=== PATIENT | female | born 1955 | race Caucasian/White ===

== ENCOUNTER 2017-07-01 20:56 | Inpatient (IN) | payer OTHER ==
[~2017-07-01] VITALS: Ht 172.7 cm; Wt 82.6 kg
--- NOTE | ~2017-07-01 | HC ---
[facility] [place] [address] CONSULTATION Name: BETO LLANES Room #: 207-[facility] IN M.R.#: [id number] Admission: 07/01/17 Attend Phys: Zaida Mulligan Discharge: 07/04/17 Date of : 57 Report #: [id number] THIS REPORT FOR: //name// CC: Akira Mulligan DATE OF SERVICE: 07/02/2017 HISTORY OF PRESENT ILLNESS: This is a 61-year-old white female originally seen at an outside hospital and then transferred to [facility] for evaluation regarding chest pain. She was diagnosed with a non-ST elevation RI, was noted to have acute renal failure, likely acute tubular necrosis. She underwent cardiac catheterization, which showed nonobstructive coronary artery disease. She has cardiomyopathy consistent with Takotsubo. She also has hypertension. We are seeing her in rehabilitation medicine consultation. PAST MEDICAL HISTORY: Includes a prior RI, history of hypertension, anxiety. HABITS: Tobacco abuse. Current every day smoker. There is a history of some alcohol use as well. ALLERGIES: PENICILLIN. MEDICATIONS: Please see the full medication listing. SOCIAL HISTORY: Lives in a house. There are some steps going in. As I tried to ask her further, she noted she was having considerable nausea. Did not desire to continue with the history, so I only obtained a very limited social history. She has nausea and I did not take her through the full review of systems. PHYSICAL EXAMINATION: GENERAL: She is a pleasant 61-year-old white female, but complains of nausea and likes to keep her eyes closed. HEENT: Facies appeared symmetric. EXTREMITIES: She has functional range of motion of both upper extremities. Strength is grade 4-/5. DTRs are trace to 1. Lower extremities, no focal calf swelling, functional range of motion with strength grade 4-/5. DTRs are trace to 1. ASSESSMENT: A 61-year-old white female with the following problem list: 1. Medical complexity with generalized debilitation. 2. Cardiomyopathy consistent with Takotsubo 3. Non-ST elevation myocardial infarction. 4. Acute renal failure, likely acute tubular necrosis. [facility] [address] [place] [address] CONSULTATION Name: BETO LLANES Room #: 207-P [facility] IN M.R.#: [id number] Admission: 07/01/17 Attend Phys: Zaida Mulligan Discharge: 07/04/17 Date of : 57 Report #: [id number] 5. Current complaints of nausea with limited history obtained. 6. Tobacco abuse. 7. Hypertension. PLAN: Therapies are to evaluate her including physical therapy and occupational therapy. Hopefully, as her nausea, decrease and should be able to increase her overall functional activity level and be further evaluated in her functional abilities. She may warrant a short acute in-hospital inpatient rehabilitation stay as she further medically stabilizes. At this point, we will follow along with you and see how she does. Thank you for asking us to assist in this patient's care. <ELECTRONICALLY SIGNED> By: Akira Fung MD 07/05/17 1409 1514 2125 Akira Fung MD /[facility]
--- NOTE | ~2017-07-01 | CATHLAB ---
[facility] [address] [place] [address] INVASIVE PROCEDURE REPORT Name: BETO LLANES Room #: 207-P ADM IN M.R.#: [id number] Admission: 07/01/17 Attend Phys: Zaida Nichole Discharge: Date of : 57 Date of Service: 07/02/17 1757 Report #: [id number] THIS REPORT FOR: //name// APPROVED REPORT Study performed: 07/02/2017 10:50:20 Patient Details Patient Status: In-Patient Room #: The patient is a 61 year-old female Event Personnel Castillo Rajan Patient Service Representative, Robin Burns RN, Akira Bryan, My [place] [employer] Procedures Performed Left Heart Cath w/or w/o Coronaries [id number] [facility] Indication Cardiomyopathy, Chest pain Risk Factors Hypercholesterolemia, Coronary Artery DiseaseHypertension Procedure Narrative The Right Groin^ was infiltrated with 1% Lidocaine subcutaneous anesthesia. A PINNACLE 5FR Sheath #[id number] sheath was inserted into the . Coronary angiography was performed using coronary diagnostic catheters. The right coronary system was accessed and visualized with a JR4 catheter. The left coronary system was accessed and visualized with a 5FR JL5 #[id number] catheter. The left ventricle was accessed and visualized with a PIGTAIL catheter. Left ventricular/Aortic Valve gradient assessed via catheter pullback. Left ventriculogram was performed in 30 degree projection. Closure device was deployed with a 5 Fr MYNXGRIP 5F #[id number]. The patient tolerated the procedure well and there were no complications associated with the procedure. There was no hematoma. Intraoperative Conscious Sedation Sedation start time: 12.43 Case end Time: 12.59 Fentanyl 50 mcg Versed 1.5 mg Fluoro Time: 2.12 minutes [facility] [address] [place] [address] INVASIVE PROCEDURE REPORT Name: BETO LLANES Room #: 207-P [facility] IN M.R.#: [id number] Admission: 07/01/17 Attend Phys: Zaida Nichole Discharge: Date of : 57 Date of Service: 07/02/17 1757 Report #: [id number] Dose: 369 mGy Contrast Type and Amount: Visipaque 140 ml Coronary Angiography The patient's coronary anatomy is right dominant. Diagnostic Cath Left Main Large-caliber vessel with mild disease distally. LAD There are moderate lesions in the proximal and mid segments of the LAD, 40-50%. Recommend medical therapy. Diagonal 1 Moderate size caliber vessel, with no flow-limiting lesions. Circumflex Supplies 2 OM vessels. OM1 Small-caliber vessel, with mild disease proximally. OM2 Moderate size caliber vessel, with no flow-limiting lesions. Right Coronary Dominant vessel with mild disease in the proximal segment, 30%. R PDA Patent vessel, no flow-limiting lesions. RPLV Small-caliber vessel, with no flow-limiting lesions. Left Ventriculography The left ventricle is normal in size with decreased contractility. The left ventricular ejection fraction is estimated to be 40%. There is hypokinesis of the mid anterior and anterolateral hylton. Hemodynamics The aortic pressure is 135/86 mmHg with a mean of 68 mmHg. The left ventricular pressure is 125/15 mmHg with a mean of mmHg. The left ventricular end diastolic pressure is 26 mmHg. There was no gradient across the aortic valve upon pullback. Pullback from the left ventricle to the aorta revealed no gradient across the aortic valve. Conclusion 1. Mild to moderate disease in the LAD and RCA. Recommend medical therapy. 2. Moderate segmental LV dysfunction. 3. Recommend aggressive risk factor management. <ELECTRONICALLY SIGNED> By: Castillo Rajan MD 07/02/171756 56 56 Castillo Rajan MD /INF
--- NOTE | ~2017-07-01 | EKG ---
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1955 Requested By: Raina Peres Order Number: [id number] MD: Matt Cook Measurements Intervals [place] Rate: 96 P: 71 OK: 182 QRS: 50 QRSD: 97 T: 45 QT: 380 QTc: 481 Interpretive Statements Sinus rhythm Probable anteroseptal infarct, old Nonspecific ST segment abnormality Compared to ECG 11/10/2015 17:18:22 No significant change was found Electronically Signed On 07-02-2017 9:55:07 CDT by Matt Cook [email or web address] <ELECTRONICALLY SIGNED> By: Matt Cook MD, [facility] 07/02/17 0955 6 6 Matt Cook MD, [facility] /EPI
--- NOTE | ~2017-07-01 | EKG ---
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 : [id number] Requested By: Raina Peres Order Number: [id number] MD: Matt Cook Measurements Intervals [place] Rate: 98 P: 78 NM: 183 QRS: 46 QRSD: 106 T: 22 QT: 393 QTc: 502 Interpretive Statements Sinus rhythm Probable anteroseptal infarct, old Nonspecific ST and T wave abnormality No previous ECGs available for comparison Electronically Signed On 07-02-2017 9:50:59 CDT by Matt Cook [email or web address] <ELECTRONICALLY SIGNED> By: Matt Cook MD, [facility] 07/02/17 0950 28 28 Matt Cook MD, [facility] /EPI
[~2017-07-01 20:56] MED LIST: ALDACTONE50 MG PO; ASPIR 8181 MG PO; CARVEDILOL12.5 MG PO; LIPITOR 20 MG T20 M1 PO; NORCO 10-325 T1 EACH PO; PHENERGAN 25 MG25 M1 PO; PROMS25 WY RECTAL; XANAX1 MG PO; ZESTRIL20 MG PO; ZESTRIL40 MG PO
[2017-07-01 22:09] VITALS: BP 171/104
[2017-07-01 23:35] VITALS: BP 169/107
[2017-07-02] VITALS (14 sets, daily range): BP systolic 111–140; BP diastolic 53–88
[2017-07-02 00:02] LABS: CALCIUM 10.1 mg/dL (8.5-10.1); CREATININE 1.3 mg/dL (0.6-1.0); POTASSIUM 4.5 mmol/L (3.5-5.1)
[2017-07-02 00:14] LABS: TROPONIN-I 0.68 ng/mL (<0.06)
[2017-07-02 00:32] LABS: HEMATOCRIT 40.8 % (37.0-47.0); HEMOGLOBIN 13.6 gm/dL (12.0-15.0); MCH 31.9 pg (26.0-34.0); MCHC 33.4 g/dL (28.0-37.0); MCV 95.5 fL (80.0-100.0); RBC 4.27 mil/uL (4.20-5.00); RDW 13.5 % (10.5-14.5); WBC 11.3 thou/uL (4.0-11.0)
[2017-07-02 00:43] LABS: PROTIME 9.9 Seconds (9.3-11.4)
[2017-07-02 06:25] LABS: HEMATOCRIT 38.2 % (37.0-47.0); HEMOGLOBIN 12.8 gm/dL (12.0-15.0); MCHC 33.6 g/dL (28.0-37.0); MCV 95.3 fL (80.0-100.0); RBC 4.01 mil/uL (4.20-5.00); RDW 13.4 % (10.5-14.5); WBC 15.2 thou/uL (4.0-11.0)
[2017-07-02 06:46] LABS: ALBUMIN 3.9 g/dL (3.4-5.0); CALCIUM 10.1 mg/dL (8.5-10.1); CREATININE 1.2 mg/dL (0.6-1.0); POTASSIUM 4.7 mmol/L (3.5-5.1); TOTAL BILIRUBIN 0.4 mg/dL (<0.1-1.0); TOTAL PROTEIN 7.5 g/dL (6.4-8.2)
[2017-07-02 06:48] LABS: TROPONIN-I 6.16 ng/mL (<0.06)
[2017-07-02 08:33] LABS: CHOLESTEROL 261 mg/dL (<200); HDL CHOLESTEROL 62 mg/dL (>40); LDL CHOLESTEROL 177 mg/dL (<100); TC:HDL 4.2 Ratio (Not establshd); TRIGLYCERIDE 111 mg/dL (<150); VLDL 22 mg/dL (<40)
[2017-07-02] MEDS ORDERED: ALDACTONE50 MG PO (13:56)
[2017-07-02] MEDS ORDERED: LEXAPRO 10 MG T10 M1 PO (13:57)
[2017-07-02] MEDS ORDERED: LASIX 40 MG TAB40 M2 PO (13:57)
[2017-07-03 02:43] LABS: HEMATOCRIT 34.6 % (37.0-47.0); HEMOGLOBIN 11.8 gm/dL (12.0-15.0); MCH 32.4 pg (26.0-34.0); MCV 95.3 fL (80.0-100.0); RBC 3.63 mil/uL (4.20-5.00)
[2017-07-03 02:56] LABS: ALBUMIN 3.4 g/dL (3.4-5.0); CALCIUM 8.6 mg/dL (8.5-10.1); PHOSPHORUS 2.5 mg/dL (2.5-4.9)
[2017-07-03 05:02] VITALS: BP 123/71
[2017-07-03 08:00] VITALS: BP 144/95
[2017-07-03 12:04] VITALS: BP 119/69
[2017-07-03 16:31] VITALS: BP 134/87
[2017-07-03 19:57] VITALS: BP 150/98
[2017-07-04 04:03] VITALS: BP 148/96
[2017-07-04 08:13] VITALS: BP 139/85
[2017-07-04] MEDS ORDERED: ATORVASTATIN CA40 MG PO (10:47)
[2017-07-04] MEDS ORDERED: ZOFRAN ODT4 MG PO (10:47)
[2017-07-04] MEDS ORDERED: NORCO 10-325 T1 EACH PO (12:11)
[2017-07-04] MEDS ORDERED: XANAX1 MG PO (12:11)
[2017-07-04 12:14] VITALS: BP 139/85
== END 2017-07-04 14:00 | disposition home or self-care (01) | DRG 281 ==
LOC: 2N 20:56
PROVIDERS: Hospitalist; Internal Medicine Cardiovascular Disease; Nurse Practitioner Family
PROC: B215YZZ Fluoroscopy of Left Heart using Other Contrast (ICD-10-PCS; principal; 2017-07-02)
PROC: B211YZZ Fluoroscopy of Multiple Coronary Arteries using Other Contrast (ICD-10-PCS; principal; 2017-07-02)
PROC: 4A023N7 Measurement of Cardiac Sampling and Pressure, Left Heart, Percutaneous Approach (ICD-10-PCS; principal; 2017-07-02)
DX: I21.4 Non-ST elevation (NSTEMI) myocardial infarction (principal); N17.9 Acute kidney failure, unspecified; I51.81 Takotsubo syndrome; I25.10 Atherosclerotic heart disease of native coronary artery without angina pectoris; I10 Essential (primary) hypertension; F31.9 Bipolar disorder, unspecified; G89.29 Other chronic pain; M54.9 Dorsalgia, unspecified; Z88.0 Allergy status to penicillin; Z79.82 Long term (current) use of aspirin; Z79.899 Other long term (current) drug therapy; I25.2 Old myocardial infarction
CPT/HCPCS: 10081

== ENCOUNTER 2017-07-06 21:05 | Inpatient (IN) | payer OTHER ==
[~2017-07-06] VITALS: Ht 172.7 cm; Wt 82.1 kg
--- NOTE | ~2017-07-06 | HC ---
[facility] [place] [address] CONSULTATION Name: BETO LLANES Room #: 364-P ADM IN M.R.#: [id number] Admission: 07/06/17 Attend Phys: Marc Mark MD Discharge: Date of : 57 Report #: [id number] THIS REPORT FOR: //name// CC: Akira Monetcusallen Mark DATE OF SERVICE: 07/08/2017 INDICATION: Chest pain. HISTORY OF PRESENT ILLNESS: This is a 61-year-old female who was recently admitted for chest pains with positive troponins, now returning with similar complaints. She has a prior history of mild to moderate disease with nonischemic cardiomyopathy in 2016. She recently presented with complaints of chest discomfort, nausea, vomiting and abdominal pain. She did have a peak troponin of 6.4. Cardiac catheterization did not reveal any significant change compared to a previous cardiac catheterization. The ejection fraction was in the 40% range. Her symptoms were felt to be due to a viral illness, with possible myocarditis resulting in the troponin elevation. She presents with similar complaints, had significant vomiting episodes, followed by generalized pain in the chest, abdominal and back area. The troponin level is slightly elevated, probably a downward trend from her recent hospitalization. There is no history of fever or chills. PAST MEDICAL HISTORY: CAD with mild to moderate disease in the LAD and RCA Nonischemic cardiomyopathy with EF in the 40% range. Hypertension, hypercholesterolemia. ALLERGIES: Include PENICILLIN. MEDICATIONS: Include lisinopril 40 mg, Coreg 12.5 mg twice a day, aspirin, spironolactone, furosemide. SOCIAL HISTORY: Positive tobacco use. FAMILY HISTORY: Negative for premature CAD. REVIEW OF SYSTEMS: A full 10-point review of systems performed. Only the pertinent positives and negatives are described in the HPI. PHYSICAL EXAMINATION: VITAL SIGNS: Blood pressure a 120/70, heart rate is 80 beats per minute. GENERAL APPEARANCE: This is a well-developed, well-nourished female in no acute distress. HENT: Normocephalic. Sclerae are anicteric. [facility] [address] [place] [address] CONSULTATION Name: BETO LLANES Room #: 364-P ADM IN M.R.#: [id number] Admission: 07/06/17 Attend Phys: Marc Mark MD Discharge: Date of : 57 Report #: [id number] ENT: Oral mucosa moist. NECK: Supple. LUNGS: Clear to auscultation. CARDIAC: Regular rate and rhythm, S1, S2 positive. ABDOMEN: Soft. EXTREMITIES: No cyanosis, no edema. LABORATORY DATA: ECG reveals sinus tachycardia at 107 beats per minute, anteroseptal GA, nonspecific ST segment abnormalities. Sodium is 133, creatinine is 0.9. Troponin 0.16. White count is 12.1, hemoglobin is 11.7. ASSESSMENT AND PLAN: 1. Coronary artery disease with mild to moderate disease, I do not believe that her complaints of chest pains are related to ischemia. Would continue with aspirin therapy for now. 2. Nonischemic cardiomyopathy, stable with no symptoms or congestion. Continue with cardiac medications including the ELISE inhibitor. 3. Nausea/vomiting/abdominal pain, her symptoms may be reflective of a GI etiology. Would pursue EGD and any further GI evaluation deemed necessary. 4. Hypertension, initially came in with an elevated blood pressure, now seems to be under good control. The blood pressure is on the low side, hold Lasix for now. 5. Tobacco use, complete smoking cessation is advised. <ELECTRONICALLY SIGNED> By: Castillo Rajan MD 07/09/17 0849 0840 1115 Castillo Rajan MD /nt
--- NOTE | ~2017-07-06 | HC ---
[facility] [place] [address] CONSULTATION Name: BETO LLANES Room #: 213-P ADM IN M.R.#: [id number] Admission: 07/06/17 Attend Phys: Marc Mark MD Discharge: Date of : 57 Report #: [id number] THIS REPORT FOR: //name// CC: Sunny BRADLEY MD DATE OF SERVICE: 07/07/2017 HISTORY OF PRESENT ILLNESS: The patient is a 61-year-old female with recurrent chest pain and mid epigastric abdominal pain. She was recently hospitalized for the same symptoms. We were consulted at that time. We discussed upper endoscopy as an outpatient as the patient may have had myocarditis. She does have a history of Takotsubo cardiomyopathy and has recently had an elevated troponin level. She therefore underwent a cardiac catheterization last hospitalization. There was no major arterial occlusion or significant stenosis noted. She had a CT arteriogram on 07/02/2017 in which a small thyroid nodule was noted in the right lung, soft tissue nodule with central calcification suggesting a benign granuloma was also noted in 2015, but otherwise was negative. She underwent an ultrasound of the abdomen on July 03. It showed a right adrenal nodule, which was also seen on CT scan. Otherwise, unremarkable. She had a CT scan also on 07/02/2017 of the abdomen. This showed right adrenal mass. Liver, pancreas and gallbladder were all normal. The patient denies any significant reflux symptoms. She has been placed on PPI therapy at this time. She does report taking a GI cocktail, which was helpful. This was about 4:00 a.m. this morning. She denies any NSAID use on a regular basis. No previous history of EGD or colonoscopy in the past. She denies any dysphagia or odynophagia. She also complains of back pain as well as nausea and vomiting. She is currently on clear liquids and tolerating this well. Currently, denies any shortness of breath. No fevers or chills. Her bowel movements have been fairly normal. She denies any obvious blood in her stools, although she does report they are dark at times. ALLERGIES: PENICILLIN. PAST MEDICAL HISTORY: Hypertension, history of Takotsubo cardiomyopathy, recent cardiac catheterization on 07/01/2017. No obstructive lesions noted. History of anxiety. MEDICATIONS ON ADMISSION: Zestril, Coreg, aspirin 81 mg, Aldactone, Lexapro, Lasix. FAMILY HISTORY: Negative for colon cancer. [facility] [address] [place] [address] CONSULTATION Name: BETO LLANES Room #: 213-P [facility] IN [facility]#: [id number] Admission: 07/06/17 Attend Phys: Marc Mark MD Discharge: Date of : 57 Report #: [id number] SOCIAL HISTORY: She does smoke. She denies any alcohol use. REVIEW OF SYSTEMS: As per HPI. PHYSICAL EXAMINATION: VITAL SIGNS: Temperature is 97.9, pulse 78, blood pressure 92/61, respiratory rate is 16. GENERAL: She is alert and oriented x 3 in no acute distress. HEENT: Sclerae nonicteric. Oropharynx clear. NECK: Supple, without lymphadenopathy. HEART: Regular rate and rhythm. CHEST: Clear to auscultation bilaterally. ABDOMEN: Soft. She is mildly tender to palpation in the midepigastrium, nondistended, normoactive bowel sounds. EXTREMITIES: No cyanosis, clubbing or edema. LABORATORY DATA: Sodium 133, potassium 3.7, chloride 99, bicarbonate 24, BUN 10, creatinine 0.9, glucose 116, AST is 22, lipase 120, total bilirubin 0.4, alkaline phosphatase 109, ALT is 54, albumin 3.8. Troponin 0.16, this is down from her previous and July 02 was 6.16. Cholesterol 261, triglyceride 111. WBC is 12.1, hemoglobin 11.7, platelet count is 332. ASSESSMENT AND PLAN: Chest pain, abdominal pain, recurrent nausea and vomiting. I had a long discussion with the patient regarding her symptoms and previous workup. She has had a CT scan of the abdomen and pelvis, ultrasound, recent cardiac catheterization. Would recommend proceeding with an upper endoscopy to rule out the possibility of esophagitis, peptic ulcer disease. We will need to obtain cardiac clearance as she may have a myocarditis, which was discussed during last hospitalization as well. In the meantime, continue PPI therapy, which has been started. We will make further recommendations after endoscopy. Thank you for allowing me to participate in her care. <ELECTRONICALLY SIGNED> By: Pablito Lujan MD 07/08/17 1128 1126 1236 Pablito Lujan MD /nt
--- NOTE | ~2017-07-06 | EKG ---
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 07/07/17 1304 2104 Matt Cook MD, [facility] /EPI
--- NOTE | ~2017-07-06 | P ---
[facility] [place] [address] PROCEDURE REPORT Name: BETO LLANES Room #: 364-P ADM IN M.R.#: [id number] Admission: 07/06/17 Attend Phys: Marc Mark MD Discharge: Date of : 57 Report #: [id number] THIS REPORT FOR: //name// CC: Akira Mark MD DATE OF SERVICE: 07/08/2017 PROCEDURE PERFORMED: Upper endoscopy with biopsies. HISTORY OF PRESENT ILLNESS: The patient is a 61-year-old female with chest pain and mid epigastric abdominal pain. She has a history of Takotsubo cardiomyopathy and recent elevated troponin level. She underwent a cardiac catheterization last hospitalization just last week. No evidence of significant occlusion. I spoke with Dr. Castillo Rajan. He cleared the patient for upper endoscopy. She has been started on PPI therapy, at home was taking Motrin on a regular basis. CT scan shows a right adrenal nodule, otherwise were unremarkable. Plan is for EGD. PROCEDURE: The risks and benefits of the procedure were explained to the patient, those risks including, but not limited to bleeding, perforation, and the risk of sedation. She understood these risks and gave informed consent. Sedation was given using propofol per anesthesia. Next, using a standard Visionary Funinon upper endoscope, the scope was placed in the patient's mouth and advanced under direct vision through the esophagus, stomach and into the second portion of the duodenum. The larynx was normal in appearance. The upper and mid esophagus was normal. At the GE junction, mild grade A erosive esophagitis was noted. In the stomach, there were several linear ulcerations in the gastric body. No evidence of bleeding. Biopsies were obtained to rule out H. pylori. The pylorus was normal and patent. The duodenal bulb, first and second portion were all normal. Biopsies were also obtained to rule out the possibility of celiac sprue. The scope was then withdrawn and the procedure terminated. The patient tolerated the procedure well. IMPRESSION: 1. Grade A erosive esophagitis. 2. Gastric ulcers. 3. Otherwise, normal upper endoscopy. RECOMMENDATIONS: 1. Await biopsy results. 2. Continue PPI therapy. 3. We will add Carafate at this time. [address] [address] PROCEDURE REPORT Name: BETO LLANES Room #: 364-P [facility] IN .R.#: [id number] Admission: 07/06/17 Attend Phys: Marc Mark MD Discharge: Date of : 57 Report #: [id number] Thank you for allowing me to participate in her care. <ELECTRONICALLY SIGNED> By: Pablito Lujan MD 07/09/17 0809 1119 1618 Pablito Lujan MD /nt
--- NOTE | ~2017-07-06 | S ---
[facility] [place] [address] SURGICAL PATH RPT PROCEDURE Name: BETO LLANES Room #: 364-P ADM IN M.R.#: [id number] Admission: 07/06/17 Date of : 57 Discharge: Report #: [id number] Path Case #: [id number] PATHOLOGY REPORT COLLECTION DATE: 07/08/2017 RECEIVED DATE: 07/08/2017 SUBMITTING PHYS: Dr. Pablito Lujan OTHER PHYS: Wang Fontaine M.D. SPECIMEN(S) RECEIVED: A.Bx duodenal B.Bx gastric * * * * * * * * * * * * FINAL DIAGNOSIS: A. Small bowel mucosa, duodenum rule out sprue, endoscopic biopsy: - No diagnostic abnormalities present. - Negative for villous blunting or increase in intraepithelial lymphocytes. B. Gastric mucosa, gastric ulcer rule out H. pylori, endoscopic biopsy: - Moderate reactive gastropathy. - Focal fibrotic lamina propria along with a fibroblastic response, consistent with an ulcer base. - Negative for intestinal metaplasia or atrophy or dysplasia. - Negative for Helicobacter pylori. COMMENT: Well controlled Helicobacter pylori immunohistochemical stain performed on block B1 - negative. (IUV:pit; 07/09/2017) PATHOLOGIST: Gwen Rojas M.D. REPORT ELECTRONICALLY SIGNED BY: Gwen Rojas M.D. DATE/TIME: 07/09/2017 15:44 * * * * * * * * * * * * GROSS PATHOLOGY: A. The specimen is received in formalin, labeled "Laveugenio, Beto and biopsy duodenal rule out sprue", are several weiner soft tissues the aggregate measure 0.7 x 0.4 x 0.1 cm, entirely submitted in A1. B. The specimen is received in formalin, labeled "Lavish, Beto and gastric ulcer rule out H. pylori", are two weiner soft tissues measuring 0.4 cm in greatest dimension each, entirely submitted in B1. [address] [address] SURGICAL PATH RPT PROCEDURE Name: BETO LLANES Room #: 364-P [facility] IN M.R.#: [id number] Admission: 07/06/17 Date of : 57 Discharge: Report #: [id number] Path Case #: [id number] ([facility]; 07/08/2017) CLINICAL HISTORY: Abdominal pain, nausea, emesis, gastric ulcer, esophagitis INITIAL CPT CODE(S): A; 81032 B; 22100, 20871 Professional services performed by [facility] at [address] , [place] [address] Technical services performed by [facility] at [address] [place] [address], [facility] [address] [address]. [facility] [place] [address] PHONE: [phone] DIRECTOR: Thomas Louie M.D. * * * END OF REPORT * * *
[~2017-07-06 21:05] MED LIST changes: +ATORVASTATIN CA40 MG PO; +LASIX 40 MG TAB40 M2 PO; +LEXAPRO 10 MG T10 M1 PO; +ZOFRAN ODT4 MG PO
[2017-07-06 21:06] VITALS: BP 181/104
[2017-07-06 21:44] LABS: CALCIUM 9.2 mg/dL (8.5-10.1); CREATININE 0.9 mg/dL (0.6-1.0); POTASSIUM 3.7 mmol/L (3.5-5.1); TROPONIN-I 0.16 ng/mL (<0.06)
[2017-07-06 21:48] LABS: ALBUMIN 3.8 g/dL (3.4-5.0); DIRECT BILIRUBIN 0.1 mg/dL (<0.1-0.3); TOTAL BILIRUBIN 0.4 mg/dL (<0.1-1.0); TOTAL PROTEIN 6.9 g/dL (6.4-8.2)
[2017-07-07] VITALS (10 sets, daily range): BP systolic 87–180; BP diastolic 51–112
[2017-07-07 01:27] LABS: URINE BILIRUBIN NEGATIVE (Negative); URINE BLOOD NEGATIVE (Negative); URINE CLARITY CLEAR; URINE COLOR YELLOW; URINE GLUCOSE-RANDOM* TRACE (Negative); URINE KETONES 1+ (Negative); URINE LEUKOCYTES-REFLEX NEGATIVE (Negative); URINE NITRITE-REFLEX NEGATIVE (Negative); URINE PROTEIN (DIPSTICK) TRACE (Negative); URINE SPECIFIC GRAVITY 1.015 (1.005-1.035); URINE UROBILINOGEN 0.2 E.U./dl (0.2-1.0)
[2017-07-07 01:49] LABS: ABSOLUTE NEUTROPHILS 9.3 thou/uL (1.4-8.2); BASOPHILS 0.6 % (0.0-2.0); EOSINOPHILS 0.5 % (0.0-3.0); HEMATOCRIT 33.4 % (37.0-47.0); HEMOGLOBIN 11.7 gm/dL (12.0-15.0); LYMPHOCYTES 16.8 % (24.0-44.0); MCH 33.3 pg (26.0-34.0); MCV 95.2 fL (80.0-100.0); MONOCYTES 5.8 % (1.0-8.0); PLATELET COUNT 332 thou/uL (150-400); POLYS 76.3 % (36.0-66.0); RBC 3.51 mil/uL (4.20-5.00); RDW 12.3 % (10.5-14.5); WBC 12.1 thou/uL (4.0-11.0)
[2017-07-08 03:35] VITALS: BP 121/71
[2017-07-08 07:04] VITALS: BP 97/60
[2017-07-08 12:11] VITALS: BP 167/105
[2017-07-08 15:28] VITALS: BP 168/81
[2017-07-08 21:30] VITALS: BP 175/96
[2017-07-08 23:30] VITALS: BP 175/112
[2017-07-09 04:20] VITALS: BP 81/50
[2017-07-09 07:47] LABS: HEMATOCRIT 37.6 % (37.0-47.0); HEMOGLOBIN 12.8 gm/dL (12.0-15.0); MCH 31.9 pg (26.0-34.0); MCV 93.8 fL (80.0-100.0); RBC 4.01 mil/uL (4.20-5.00); RDW 12.8 % (10.5-14.5); WBC 16.6 thou/uL (4.0-11.0)
[2017-07-09 07:58] LABS: CREATININE 1.2 mg/dL (0.6-1.0)
[2017-07-09 08:38] VITALS: BP 156/86
[2017-07-09 08:44] LABS: ABSOLUTE NEUTROPHILS 9.3 thou/uL (1.4-8.2); PLATELET COUNT 468 thou/uL (150-400)
[2017-07-09 08:45] LABS: PLATELET ESTIMATE INCREASED
[2017-07-09 13:04] VITALS: BP 145/82
[2017-07-09 17:35] VITALS: BP 83/52
[2017-07-09 20:17] VITALS: BP 74/43
[2017-07-10] VITALS (7 sets, daily range): BP systolic 72–145; BP diastolic 43–125
[2017-07-10 05:30] LABS: HEMATOCRIT 30.8 % (37.0-47.0); MCH 32.6 pg (26.0-34.0); MCHC 34.3 g/dL (28.0-37.0); RBC 3.24 mil/uL (4.20-5.00); RDW 13.1 % (10.5-14.5); WBC 11.6 thou/uL (4.0-11.0)
[2017-07-10 05:34] LABS: HEMOGLOBIN 10.6 gm/dL (12.0-15.0); PLATELET COUNT 371 thou/uL (150-400)
[2017-07-10 05:48] LABS: CALCIUM 8.6 mg/dL (8.5-10.1); CREATININE 1.9 mg/dL (0.6-1.0); POTASSIUM 3.3 mmol/L (3.5-5.1)
[2017-07-10 07:32] LABS: ABSOLUTE NEUTROPHILS 6.5 thou/uL (1.4-8.2); ANISOCYTOSIS SLIGHT; ATYPICAL LYMPHS 2 %; POIKILOCYTOSIS SLIGHT
[2017-07-11 03:30] VITALS: BP 96/61
[2017-07-11 07:06] LABS: ABSOLUTE NEUTROPHILS 5.5 thou/uL (1.4-8.2); BASOPHILS 0.8 % (0.0-2.0); EOSINOPHILS 2.6 % (0.0-3.0); HEMATOCRIT 28.7 % (37.0-47.0); HEMOGLOBIN 9.9 gm/dL (12.0-15.0); MCH 32.7 pg (26.0-34.0); MCHC 34.4 g/dL (28.0-37.0); MCV 94.8 fL (80.0-100.0); MONOCYTES 10.6 % (1.0-8.0); PLATELET COUNT 333 thou/uL (150-400); RBC 3.03 mil/uL (4.20-5.00); RDW 12.9 % (10.5-14.5); WBC 9.3 thou/uL (4.0-11.0)
[2017-07-11 07:19] LABS: CALCIUM 8.1 mg/dL (8.5-10.1); POTASSIUM 3.5 mmol/L (3.5-5.1)
[2017-07-11 07:44] VITALS: BP 97/49
[2017-07-11 11:56] VITALS: BP 131/56
[2017-07-11] MEDS ORDERED: PROTONIX40 M1 PO (14:44)
[2017-07-11] MEDS ORDERED: CARAFATE 11 GM/10 M1 PO (14:44)
[2017-07-11 14:52] VITALS: BP 131/56
[2017-07-12 16:09] LABS: RENIN 2.043 ng/mL/hr (0.167-5.380)
[2017-07-13 08:07] LABS: ALDOSTERONE 2.2 ng/dL (0.0-30.0)
== END 2017-07-11 16:00 | disposition home or self-care (01) | DRG 381 ==
LOC: ER 21:05 → 2N 23:49 → EROBS 23:49 → 2N 07-07 00:28 → 3W 07-08 17:46 → ENTRNSPT 07-11 15:46 → EDTRNSPTSTS 07-11 15:47 → 3W 07-11 16:00
PROVIDERS: Emergency Medicine; Hospitalist; Surgery
PROC: 0DB98ZX Excision of Duodenum, Via Natural or Artificial Opening Endoscopic, Diagnostic (ICD-10-PCS; principal; 2017-07-08)
PROC: 0DB68ZX Excision of Stomach, Via Natural or Artificial Opening Endoscopic, Diagnostic (ICD-10-PCS; principal; 2017-07-08)
DX: K22.10 Ulcer of esophagus without bleeding (principal); I51.81 Takotsubo syndrome; E87.1 Hypo-osmolality and hyponatremia; N17.9 Acute kidney failure, unspecified; K20.8 Other esophagitis; K25.9 Gastric ulcer, unspecified as acute or chronic, without hemorrhage or perforation; I10 Essential (primary) hypertension; F41.9 Anxiety disorder, unspecified; F17.210 Nicotine dependence, cigarettes, uncomplicated; I25.10 Atherosclerotic heart disease of native coronary artery without angina pectoris; E78.00 Pure hypercholesterolemia, unspecified; E78.5 Hyperlipidemia, unspecified; I25.2 Old myocardial infarction; Z88.0 Allergy status to penicillin; Z79.82 Long term (current) use of aspirin; Z79.899 Other long term (current) drug therapy
CPT/HCPCS: 10081; 10879; 62110; 62900; 70005

== ENCOUNTER 2018-01-20 18:01 | Emergency (ER) | payer OTHER ==
[~2018-01-20] VITALS: Ht 172.7 cm; Wt 71.7 kg
[~2018-01-20 18:01] MED LIST changes: +CARAFATE 11 GM/10 M1 PO; +IMDUR 30 MG TAB30 M1 PO; +LISINOPRIL5 MG PO; +OXYCODONE HCL 55 MG PO; +PROTONIX40 M1 PO; +SPIRONOLACTONE25 M1 PO
== END 2018-01-20 19:08 | disposition home or self-care (01) ==
LOC: ER 18:01
DX: G89.29 Other chronic pain (principal); M54.5 Low back pain; I25.2 Old myocardial infarction; I10 Essential (primary) hypertension; E78.5 Hyperlipidemia, unspecified; I51.81 Takotsubo syndrome; F17.210 Nicotine dependence, cigarettes, uncomplicated; Z87.19 Personal history of other diseases of the digestive system; Z88.0 Allergy status to penicillin

== ENCOUNTER 2018-04-22 18:29 | Emergency (ER) | payer OTHER ==
[~2018-04-22] VITALS: Ht 172.7 cm; Wt 71.2 kg
[2018-04-22 18:32] VITALS: BP 194/119
[2018-04-22] MEDS ORDERED: ALDACTONE50 MG PO (18:39)
[2018-04-22] MEDS ORDERED: NORCO 5-325 TA1 EACH PO (20:13)
== END 2018-04-22 20:20 | disposition home or self-care (01) ==
LOC: ER 18:29
DX: S63.592A Other specified sprain of left wrist, initial encounter (principal); I10 Essential (primary) hypertension; F41.9 Anxiety disorder, unspecified; E78.5 Hyperlipidemia, unspecified; G89.29 Other chronic pain; F17.210 Nicotine dependence, cigarettes, uncomplicated; Z95.5 Presence of coronary angioplasty implant and graft; Z88.0 Allergy status to penicillin; W18.39XA Other fall on same level, initial encounter; Y93.89 Activity, other specified; Y92.89 Other specified places as the place of occurrence of the external cause; Y99.8 Other external cause status

== ENCOUNTER → 2018-07-14 | Outpatient (CLI) | payer OTHER ==
[~2018-07-14] MED LIST changes: +NORCO 5-325 TA1 EACH PO
== END ==
LOC: CAT 14:11
DX: Z13.6 Encounter for screening for cardiovascular disorders (principal); E78.00 Pure hypercholesterolemia, unspecified; I25.10 Atherosclerotic heart disease of native coronary artery without angina pectoris

== ENCOUNTER 2019-07-05 18:24 | Emergency (ER) | payer OTHER ==
[~2019-07-05] VITALS: Ht 172.7 cm; Wt 72.6 kg
--- NOTE | ~2019-07-05 | EMS ---
[address] [address] EMS Patient Care Report Name: BETO LLANES Room #: DEP [facility] [place] [facility]#: [id number] Admission: 07/05/19 Attend Phys: Discharge: 07/05/19 Date of : 57 Report #: [id number] THIS REPORT FOR: //name// Report Transmitted: 07/05/2019 20:56 EMS Care Summary [facility] MED-ACT Incident [id number] @ 07/05/2019 17:39 Incident Location [address] [place] [address] Patient BETO LLANES Female, 63 Years 1955 Patient Address [address] [place] [address] Patient History Hypertension (HTN),ST Elevation (STEMI) Myocardial Infarction,Anxiety,Back Pain (Chronic), Patient Allergies Penicillin allergy, Patient Medications Alprazolam, Lisinopril, Hydrocodone, Spironolactone, Carvedilol, Chief Complaint seizure per family Disposition Transported No Lights/[place] Dis[place] Reason Unconscious/Fainting Transported To [facility] Narrative [id number] arrived to find pt. seated in a chair in the living room of her [address] [address] EMS Patient Care Report Name: BETO LLANES Room #: DEP [facility]AN [place]#: [id number] Admission: 07/05/19 Attend Phys: Discharge: 07/05/19 Date of : 57 Report #: [id number] apartment, family present. Pt. is pale and diaphoretic, with gaze deviated to the right, pupils small. Pt. is holding her arms up so that her upper arms are parallel to the ground and clenched fists are pointing to the oumar. Pt. does not speak to EMS or follow commands. Family states that pt. went "unresponsive" and her whole body got tense. Family states they did not see seizure activity, but tried to "give her sugar because it works on me". Family is asked about narcotic use and they state that pt. does take hydrocodone. Family states they do not know how much pt. has taken today. After assessment and 12-lead, IV is started and Narcan is administered. Pt. becomes responsive in approximately 1-2 minutes and is A & O x 3. Pt. states she does not know how much hydrocodone she took today. Pt. stands and transfers to cot, and is moved to unit. Pt. states enroute that about two days ago she had jaw pain, which moved to crushing chest pain and that she took three of her nitro tabs which made pain go away. Pt. is transported to [facility] without further change and is moved to bed via sheet drag. Pt. care is transferred to staff writer. Initial Vitals @18:13P: 87,SpO2: 95, @17:50P: 87,SpO2: 53, @17:58P: 106,R: 18,BP: 150/100,Pain: 0/10,GCS: 15,SpO2: 94,Revised Trauma: 12, @17:54P: 90,R: 14,BP: 139/86,Pain: 0/10,GCS: 11,SpO2: 95,Revised Trauma: 11, @17:49P: 84,R: 14,BP: 154/79,Pain: 0/10,GCS: 12,SpO2: 88,Revised Trauma: 11, @17:53P: 84,R: 95,Pain: 0/10,GCS: 12,SpO2: 93, @18:13P: 85,R: 18,BP: 120/78,Pain: 0/10,GCS: 15,SpO2: 95,Revised Trauma: 12, @18:03P: 97,R: 18,BP: 155/103,Pain: 0/10,GCS: 15,SpO2: 96,Revised Trauma: 12, Assessments @17:48MENTAL:Other,SKIN:Diaphoresis,Pale,HEENT:Eyes: Left Pupil: 2-mm,Eyes: Right: Other,Eyes: Right Pupil: 2-mm,Eyes: Left: Other,LUNG SOUNDS:General: No Abnormalities,ABDOMEN:General: No Abnormalities,PELVIS//GI:EXTREMITIES:Left Arm: No Abnormalities,Right Arm: No Abnormalities,Left Leg: No Abnormalities,Right Leg: No Abnormalities,PULSE:NEURO:Other, Impression Overdose - Other opioids Procedures @17:5312-Lead ECGResponse: UnchangedSucceeded@17:55Saline Lock 10cc (20 ga) Site: Antecubital-RightResponse: UnchangedSucceeded@17:56Naloxone - 1 Milligrams (mg) - Intravenous (IV)Response: Improved Timeline 17:38,Call Received [facility] [address] [place] [address] EMS Patient Care Report Name: BETO LLANES [facility] [id number] Admission: 07/05/19 Attend Phys: Discharge: 07/05/19 Date of : 57 Report #: [id number] 17:38,Psap Call 17:39,Dispatched 17:40,En Route 17:45,On Scene 17:47,At Patient 17:49,BP: 154/79 M,PULSE: 84,RR: 14 R,SPO2: 88 Ox,ETCO2: ,BG: ,PAIN: 0,GCS: 12, 17:50,BP: / M,PULSE: 87,RR: R,SPO2: 53 Ox,ETCO2: ,BG: ,PAIN: ,GCS: , 17:53,12-Lead ECG,Response: UnchangedSucceeded, 17:53,BP: / M,PULSE: 84,RR: 95 R,SPO2: 93 Ox,ETCO2: ,BG: ,PAIN: 0,GCS: 12, 17:54,BP: 139/86 M,PULSE: 90,RR: 14 R,SPO2: 95 Ox,ETCO2: ,BG: ,PAIN: 0,GCS: 11, 17:55,Saline Lock 10cc 20 ga Site: Antecubital-Right,Response: UnchangedSucceeded, 17:56,Naloxone - 1 Milligrams (mg) - Intravenous (IV),Response: Improved 17:58,BP: 150/100 M,PULSE: 106,RR: 18 R,SPO2: 94 Ox,ETCO2: ,BG: ,PAIN: 0,GCS: 15, 18:03,BP: 155/103 M,PULSE: 97,RR: 18 R,SPO2: 96 Ox,ETCO2: ,BG: ,PAIN: 0,GCS: 15, 18:04,Depart Scene 18:13,BP: / M,PULSE: 87,RR: R,SPO2: 95 Ox,ETCO2: ,BG: ,PAIN: ,GCS: , 18:13,BP: 120/78 M,PULSE: 85,RR: 18 R,SPO2: 95 Ox,ETCO2: ,BG: ,PAIN: 0,GCS: 15, 18:29,At Destination 18:31,Call Closed Disclaimer v1.1 Copyright 2020 [employer] This EMS Care Summary contains data elements from the applicable legal record (which may be displayed differently). It is designed to provide pertinent information for the following purposes: continuity of care, clinical quality, and state data reporting. The complete legal record is available to ED staff and administrators of the receiving hospital in [employer] Patient Tracker. All data is provided "as is."
[2019-07-05] MEDS ORDERED: CARVEDILOL12.5 MG PO (18:38)
[2019-07-05] MEDS ORDERED: CARVEDILOL25 MG PO (18:39)
[2019-07-05] MEDS ORDERED: CLONIDINE HCL0.1 MG PO (18:40)
[2019-07-05] MEDS ORDERED: LISINOPRIL20 MG PO (18:41)
[2019-07-05] MEDS ORDERED: PROAIR HFA8.5 GM INH (18:41)
[2019-07-05 18:56] LABS: ABSOLUTE NEUTROPHILS 6.5 thou/uL (1.4-8.2); BASOPHILS 1.2 % (0.0-2.0); EOSINOPHILS 1.5 % (0.0-3.0); HEMATOCRIT 39.7 % (37.0-47.0); HEMOGLOBIN 13.4 gm/dL (12.0-15.0); LYMPHOCYTES 26.1 % (24.0-44.0); MCH 32.9 pg (26.0-34.0); MCHC 33.7 g/dL (28.0-37.0); MCV 97.7 fL (80.0-100.0); MONOCYTES 3.8 % (1.0-8.0); PLATELET COUNT 399 thou/uL (150-400); POLYS 67.4 % (36.0-66.0); RBC 4.06 mil/uL (4.20-5.00); RDW 13.7 % (10.5-14.5); WBC 9.7 thou/uL (4.0-11.0)
[2019-07-05 18:57] LABS: ANION GAP 5 mmol/L (7-16); BUN 14 mg/dL (7-18); CALCIUM 9.7 mg/dL (8.5-10.1); CHLORIDE 96 mmol/L (98-107); CO2 29 mmol/L (21-32); CREATININE 1.3 mg/dL (0.6-1.0); POTASSIUM 4.6 mmol/L (3.5-5.1); SODIUM 130 mmol/L (136-145)
[2019-07-05 18:58] LABS: GLUCOSE 171 mg/dL (74-106)
[2019-07-05 19:07] LABS: MAGNESIUM 1.9 mg/dL (1.8-2.4); SGOT 18 U/L (15-37); SGPT 24 U/L (30-65); TOTAL BILIRUBIN 0.5 mg/dL (<0.1-1.0); TOTAL PROTEIN 7.7 g/dL (6.4-8.2); TROPONIN-I <0.06 ng/mL (<0.06)
[2019-07-05] MEDS ORDERED: ASA81BEC PO (20:12)
[2019-07-05 20:42] VITALS: BP 133/66
--- NOTE | 2019-07-06 09:36 | EKG ---
[facility] [place] [address] ELECTROCARDIOGRAM REPORT Name: BETO LLANES Room #: DEP 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: angel : 1955 Requested By: Bhakti Katz Order Number: [id number] MD: Matt Cook Measurements Intervals [place] Rate: 74 P: 57 MI: 191 QRS: 28 QRSD: 95 T: 39 QT: 435 QTc: 483 Interpretive Statements Sinus rhythm Normal tracing Compared to ECG 09/25/2017 19:17:40 Sinus tachycardia no longer present Atrial abnormality no longer present ST (T wave) deviation no longer present Electronically Signed On 07-06-2019 9:34:50 CDT by Matt Cook [email or web address] <ELECTRONICALLY SIGNED> By: Matt Cook MD, [facility] 07/06/19 0934 1828 1828 Matt Cook MD, [facility] /EPI
== END 2019-07-05 21:03 | disposition left against medical advice (07) ==
LOC: ER 18:24
PROVIDERS: Emergency Medicine Emergency Medical Services
DX: R53.1 Weakness (principal); R51 Headache; R53.83 Other fatigue; M79.89 Other specified soft tissue disorders; I25.2 Old myocardial infarction; I10 Essential (primary) hypertension; E78.5 Hyperlipidemia, unspecified; F17.210 Nicotine dependence, cigarettes, uncomplicated; Z79.899 Other long term (current) drug therapy; Z79.82 Long term (current) use of aspirin